=== PATIENT | male | born 1995 | race African-American/Black ===

== ENCOUNTER 2018-04-24 05:33 | Day surgery (SDC) | payer OTHER ==
[2018-04-24] MEDS: IV RINGERS,LACTATED 1000ML 1,000 ML IV (06:27)
[2018-04-24] MEDS ORDERED: LIDOCAINE 2% PF Vial for OR 5 ML VIAL. (06:55)
[2018-04-24] MEDS ORDERED: fentaNYL PF VIAL 100 MCG/2 ML VIAL (06:55)
[2018-04-24] MEDS ORDERED: PROPOFOL 20 ML IV ×2 (06:55→08:04)
[2018-04-24] MEDS ORDERED: ONDANSETRON PF 4 MG/2 ML VIAL. (06:58)
[2018-04-24] MEDS ORDERED: DEXAMETHASONE SOD PHOS 20 MG/5 ML VIAL. (06:58)
[2018-04-24] MEDS ORDERED: ceFAZolin 2GM PREMIX 2 GM/50 ML BAG IV (07:00)
[2018-04-24] MEDS ORDERED: MORPHINE SULFATE 2 MG/ML DISP.SYRIN. IV (07:00)
[2018-04-24] MEDS ORDERED: PROCHLORPERAZINE 10 MG/2 ML VIAL. IV (07:00)
[2018-04-24] MEDS ORDERED: fentaNYL PF VIAL 100 MCG/2 ML VIAL IV ×2 (07:00)
[2018-04-24] MEDS ORDERED: LIDOCAINE 1% PF 2 ML VIAL. ID (07:00)
[2018-04-24] MEDS ORDERED: ONDANSETRON PF 4 MG/2 ML VIAL. IV (07:00)
[2018-04-24] MEDS ORDERED: SEVOFLURANE 31 TO 60 MINUTES. IH (08:01)
[2018-04-24] MEDS ORDERED: PHENYLEPHRINE in 0.9% NACL PF 1 MG/10 ML SYRINGE. IV (08:35)
[2018-04-24] MEDS: BUPIVACAINE-EPI 0.25%-1:200000 50 ML VIAL. (08:41)
[2018-04-24] MEDS ORDERED: KETOROLAC 30 MG/ML INJ FOR OR. INJ (08:41)
[2018-04-24] MEDS: traMADol 50 MG TABLET PO (09:22)
== END 2018-04-24 09:45 | disposition home or self-care (01) ==
LOC: SURG 05:33
DX: M25.861 Other specified joint disorders, right knee (principal); M23.41 Loose body in knee, right knee; Z88.6 Allergy status to analgesic agent; I10 Essential (primary) hypertension; F41.9 Anxiety disorder, unspecified; F32.9 Major depressive disorder, single episode, unspecified; F19.90 Other psychoactive substance use, unspecified, uncomplicated; F17.210 Nicotine dependence, cigarettes, uncomplicated; Z79.899 Other long term (current) drug therapy
CPT/HCPCS: 29877; A7015; C1782; J0690; J1100; J1885; J2001; J2370; J2405; J2704; J3010; J7120

== ENCOUNTER 2018-08-28 00:43 | Inpatient (IN) | payer OTHER ==
[~2018-08-28] VITALS: Ht 190.5 cm; Wt 69.1 kg
[2018-08-28] VITALS (19 sets, daily range): BP systolic 110–175; BP diastolic 52–92
[~2018-08-28 00:43] MED LIST: DIPH25CA58 PO; GABA300C18 PO; TRAM50TA PO
[2018-08-28] MEDS ORDERED: PROPOFOL 10 MG/ML (20ML) VIAL. IV ONE (01:00)
[2018-08-28] MEDS ORDERED: LIDOCAINE 2% PF Vial for OR 5 ML VIAL. ONE (01:48)
[2018-08-28] MEDS ORDERED: PROPOFOL 20 ML IV ONE ×2 (01:48)
[2018-08-28] MEDS ORDERED: SUCCINYLCHOLINE 200 MG/10 ML VIAL. ONE (01:48)
--- NOTE | 2018-08-28 01:58 | PDOC2 ---
CONSULT Date of Consult Date of Consult DATE: 08/28/18 TIME: 01:55 Reason for Consult Reason for Consult: Ingested foreign body-razor blade Current Medications Current Medications Current Medications Propofol 20 ml @ As Directed STK-MED ONCE IV ; Start 08/28/18 at 01:48; Stop 08/28/18 at 01:49; Status DC Lidocaine HCl (Lidocaine Pf 2% Vial) 5 ml STK-MED ONCE .ROUTE ; Start 08/28/18 at 01:48; Stop 08/28/18 at 01:49; Status DC Succinylcholine Chloride (Anectine) 200 mg STK-MED ONCE .ROUTE ; Start at 01:48; Stop 08/28/18 at 01:49; Status DC Propofol 20 ml @ As Directed STK-MED ONCE IV ; Start 08/28/18 at 01:48; Stop 08/28/18 at 01:49; Status DC Active Scripts Active Tramadol Hcl 50 Mg Tablet 50 Mg PO Q4HRS PRN Reported Gabapentin 300 Mg Capsule 300 Mg PO BID Benadryl (Diphenhydramine Hcl) 25 Mg Capsule 1 Cap PO QHS Allergies Allergies: Coded Allergies: aspirin (Verified Allergy, Unknown, 04/24/18) Vitals VITALS Vital Signs Date Time Temp Pulse Resp B/P (MAP) Pulse Ox O2 Delivery O2 Flow Rate FiO2 08/28/18 00:45 98.6 74 16 158/85 (109) 100 Room Air 98.6 Assessment/Plan Assessment/Plan Ingested foreign body- razor blade x 1, Emergency endoscopy for attempted removal with anesthesia for airway management.Risks and benefits discussed with patient including risk of hemorrhage/perforation that would possibly require surgery Full note dictated JOSHUA RAMOS MD Aug 28, 2018 01:58
--- NOTE | 2018-08-28 02:41 | PDOC4 ---
Operative Note Operative Note EGD Meds propofol per anesthesia Pre-op dx ingested foreigh body=razor blade Post-op dx non-visualized razor blade- tarah down stream in sb Plan serial KUBS surgical consult for possible removal if complication occurs JOSHUA RAMOS MD Aug 28, 2018 02:41
[2018-08-28] MEDS: IV NORMAL SALINE 1000ML BAG 1,000 ML IV SCH ×3 (02:45→23:27)
[2018-08-28 02:50] LABS: BASO % 1 % (0-3); EOS % 1 % (0-3); HEMATOCRIT 48.2 % (39.0-53.0); HEMOGLOBIN 16.5 g/dL (13.0-17.5); LYMPH # 2.1 x10^3/uL (1.0-4.8); LYMPH % 27 % (24-48); MEAN CORPUSCULAR HEMOGLOBIN 30 pg (25-35); MEAN CORPUSCULAR HGB CONC 34 g/dL (31-37); MEAN CORPUSCULAR VOLUME 87 fL (79-100); MONO # 0.7 x10^3/uL (0.0-1.1); MONO % 8 % (0-9); NEUT % 63 % (31-73); PLATELET COUNT 61 x10^3/uL (140-400); RED BLOOD COUNT 5.56 x10^6/uL (4.30-5.70); WHITE BLOOD COUNT 7.9 x10^3/uL (4.0-11.0)
[2018-08-28 03:29] LABS: CALCIUM 9.5 mg/dL (8.5-10.1); CREATININE 1.1 mg/dL (0.7-1.3); GFR 99.5; POTASSIUM 3.6 mmol/L (3.5-5.1)
--- NOTE | 2018-08-28 05:14 | OP ---
DATE OF SURGERY: 08/28/2018 SURGEON: Gerardo Yarbrough MD PROCEDURE PERFORMED: Esophagogastroduodenoscopy with attempted foreign body removal. PREOPERATIVE DIAGNOSIS: Ingested razor blade. POSTOPERATIVE DIAGNOSES: Retained food in paper, but not visualized razor blade. DESCRIPTION OF PROCEDURE: After risks and benefits of procedure including risk of hemorrhage, perforation and were discussed with the patient, informed consent was obtained. The patient was then intubated and placed on propofol with anesthesia. Endoscope was advanced through esophagus, stomach, and first and second portions of duodenum. No evidence of retained metal objects were encountered. Within the stomach, the paper which had been utilized by the patient in order to swallow razor blade was noted to be retained. This was suctioned as well as rinsed with water and air, but no retained razor blade was encountered. Scope was inserted, withdrawn, no evidence of active bleeding. The patient tolerated the procedure well. DISPOSITION: Resume previous diet, medications, activity. PLAN: We recommend serial KUBs, IV fluids, to monitor first passage of razor blade as well as surgical consultation for potential complications from the spontaneous passage of the sharp foreign object. GEARRDO YARBROUGH MD DR: MISHA/shanique JOB#: [id number] / [id number] MICHELLE Hubbard DO
[2018-08-28] MEDS ORDERED: PROCHLORPERAZINE 10 MG/2 ML VIAL. IV PRN (07:30)
[2018-08-28] MEDS ORDERED: ACETAMINOPHEN 650 MG SUPP.RECT. PR PRN (07:30)
--- NOTE | 2018-08-28 09:17 | CONS ---
DATE OF CONSULTATION: 08/28/2018 REASON FOR CONSULTATION: Ingested foreign body. HISTORY OF PRESENT ILLNESS: This is a 23-year-old -[place] male whose past medical history is significant for chronic pain, ____ as well as recurrent foreign body ingestions is seen with ingestion of a razor blade documented on x-ray. He has been transferred to [facility] for attempted endoscopic extraction. The patient gives no explanation as for the ingestion and is otherwise an evasive and elusive historian. PAST MEDICAL HISTORY: Depression, recurrent foreign body ingestions, chronic pain. ALLERGIES: ASPIRIN. MEDICATIONS: Gabapentin, Benadryl, and unspecified psychiatric medications. SOCIAL HISTORY: He is incarcerated. Does not drink or smoke at this time. FAMILY HISTORY: Noncontributory. REVIEW OF SYSTEMS: As above. PHYSICAL EXAMINATION: GENERAL: A well-nourished, well-developed -[place] male who is alert, cooperative, in no acute distress. VITAL SIGNS: Pulse is 70, respirations 20. HEENT: Normocephalic, atraumatic. Pupils and extraocular muscles are not tested. Sclerae are anicteric. NECK: Supple. LUNGS: Clear. CARDIOVASCULAR: Reveals an S1, S2 without S3, S4 or appreciable murmur. ABDOMEN: Soft abdomen, normal bowel sounds without appreciable hepatosplenomegaly. EXTREMITIES: Reveals no cyanosis, clubbing, edema. IMPRESSION AND PLAN: Retained esophageal foreign body, most likely a razor blade. We recommend endoscopic extraction if the razor blade has not already passed through the stomach. Anesthesia, protection of airway will be coordinated prior to the endoscopy as discussed with the patient and the [facility]. JOSHUA RAMOS MD DR: MISHA/shanique JOB#: [id number] / [id number] MICHELLE Hubbard DO
--- NOTE | 2018-08-28 10:07 | RAD ---
OLGA, 08/28/2018: HISTORY: Retained foreign body, swallowed razor leg The abdominal gas pattern is unremarkable. There is no evidence organomegaly. There is a radiopaque foreign body compatible with a razor blade projected over the left upper quadrant of the abdomen in the region of the body of the stomach. No other foreign body is seen. No other abnormality is detected. IMPRESSION: Radiopaque foreign body projected over the body of the stomach. Electronically signed by: Dimitri Watson MD (08/28/2018 10:04 AM) [facility]
--- NOTE | 2018-08-28 10:59 | PDOC ---
Subjective: Subjective: Denies pain, wants to eat. Objective: Vital Signs: Vital Signs Date Time Temp Pulse Resp B/P (MAP) Pulse Ox O2 Delivery O2 Flow Rate FiO2 08/28/18 10:00 75 117/52 (73) 98 Room Air 08/28/18 09:00 17 08/28/18 07:00 98.3 98.3 08/28/18 02:47 10 Imaging: EGD 08/28/18 non-visualized razor blade- likely down stream in sb KUB 08/28/18 IMPRESSION: Radiopaque foreign body projected over the body of the stomach. PE: GEN: NAD LUNGS: CTAB HEART: RRR ABD: non-tender NEURO/PSYCH: A & O 3 A/P: Razor blade ingestion -- Reviewed w/ Dr. Yarbrough - ice chips only, okay to transfer out of ICU, will ask surgery to follow. D/w RN and Dr. Brantley/students. MICHAEL TRERELL Aug 28, 2018 10:59
--- NOTE | 2018-08-28 11:45 | HP ---
ADMIT DATE: 08/28/2018 CHIEF COMPLAINT: Ingestion of razor blade. HISTORY OF PRESENT ILLNESS: The patient is a pleasant middle-aged 23-year-old -[place] male who resides at [facility]. Basically, I believe, he is being held there at the longterm until he gets adjudicator for his legal issues. He apparently got hold of a razor blade, swallowed it, states he has been depressed, has some associated abdominal pain. I discussed the case with ER physician. We are admitting the patient. The patient went for an EGD this morning, but apparently they did not find the razor, although it is showing up on the x-rays. We suspect it is now in the small intestine. He is now in the ICU. PAST MEDICAL HISTORY: Depression. ALLERGIES: ASPIRIN. FAMILY HISTORY: Hypertension. SOCIAL HISTORY: He denies drinking, smoke or taking drugs. He resides at the longterm. MEDICATIONS: Reviewed. He is on Benadryl, Ultram and gabapentin. REVIEW OF SYSTEMS: GENERAL: No history of weight change, weakness or fevers. SKIN: No bruising, hair changes or rashes. EYES: No blurred, double or loss of vision. NOSE AND THROAT: No history of nosebleeds, hoarseness or sore throat. HEART: No history of palpitations, chest pain or shortness of breath on exertion. LUNGS: Denies cough, hemoptysis, wheezing or shortness of breath. GASTROINTESTINAL: He complains of abdominal pain, although it is improving. GENITOURINARY: No history of frequency, urgency, hesitancy or nocturia. NEUROLOGIC: Denies history of numbness, tingling, tremor or weakness. PSYCHIATRIC: No history of panic, anxiety or depression. ENDOCRINE: No history of heat or cold intolerance, polyuria or polydipsia. EXTREMITIES: Denies muscle weakness, joint pain, pain on walking or stiffness. PHYSICAL EXAMINATION: VITAL SIGNS: Temperature afebrile, pulse 70, respirations 18, blood pressure 144/74. GENERAL: He is alert, cooperative. HEART: Normal S1, S2. LUNGS: Clear to auscultation. ABDOMEN: Soft, positive bowel sounds, nontender. EXTREMITIES: No edema. SKIN: No rash. ENDOCRINE: No thyromegaly. LYMPHATICS: No cervical nodes. HEMATOPOIETIC: No bruising. NEUROLOGICAL: He is moving all extremities. PSYCHIATRIC: He is a little depressed. GENITOURINARY: Normal. LABORATORY DATA: Hematology is normal. Electrolytes are normal. ASSESSMENT AND PLAN: Ingestion of razor blade. Given the size of the blade, I suspect it will pass through the intestines and he will eventually defecate it out. For now, we are going to do a careful monitoring. We have consulted Surgery, have him on standby in case he develops severe pain and leukocytosis or fever. We have consulted GI as well. They did endoscopy, did not find anything yet. We will try to advance his diet. Continue home meds, frequent labs. PROGNOSIS: Guarded. MICHELLE CHILDRESS DO DR: KYLEIGH/shanique JOB#: [id number] / [id number]
--- NOTE | 2018-08-28 11:53 | PDOC2 ---
RICKI POSADAS RESIDENTIAL REAL ESTATE AGENT 08/28/18 1153: CONSULT Date of Consult Date of Consult DATE: 08/28/18 TIME: 11:46 Reason for Consult Reason for Consult: FB ingestion Referring Physician Referring Physician: Dr Yarbrough Identification/Chief Complaint Chief Complaint FB ingestion Source Source: Chart review, Patient History of Present Illness Reason for Visit: Razor blade ingestion orally EGD-unable to visualize razor Xray today reveals near stomach denies pain, nausea or emesis + flatus, no stool from records not first time for FB ingestion Past Medical History Past Medical History chronic pain, depression, anxiety, HTN, numbness Past Surgical History Past Surgical History: No pertinent history Family History Family History: Other (noncontributory to current illness ) Social History Social History incarcerated No ALCOHOL: none Drugs: None Current Problem List Problem List Problems Medical Problems: (1) Foreign body Status: Acute Current Medications Current Medications Current Medications Propofol 20 ml @ As Directed STK-MED ONCE IV ; Start 08/28/18 at 01:48; Stop 08/28/18 at 01:49; Status DC Lidocaine HCl (Lidocaine Pf 2% Vial) 5 ml STK-MED ONCE .ROUTE ; Start 08/28/18 at 01:48; Stop 08/28/18 at 01:49; Status DC Succinylcholine Chloride (Anectine) 200 mg STK-MED ONCE .ROUTE ; Start at 01:48; Stop 08/28/18 at 01:49; Status DC Propofol 20 ml @ As Directed STK-MED ONCE IV ; Start 08/28/18 at 01:48; Stop 08/28/18 at 01:49; Status DC Sodium Chloride 1,000 ml @ 100 mls/hr Q10H IV Last administered on 08/28/18at 02:45; Start 08/28/18 at 02:45 Acetaminophen (Tylenol Supp) 650 mg PRN Q6HRS PRN [place] MILD PAIN / TEMP; Start 08/28/18 at 07:30 Prochlorperazine Edisylate (Compazine) 10 mg PRN Q6HRS PRN IV HEADACHE/NAUSEA/ VOMITING Last administered on 08/28/18at 07:41; Start 08/28/18 at 07:30 Active Scripts Active Tramadol Hcl 50 Mg Tablet 50 Mg PO Q4HRS PRN Reported Gabapentin 300 Mg Capsule 300 Mg PO BID Benadryl (Diphenhydramine Hcl) 25 Mg Capsule 1 Cap PO QHS Allergies Allergies: Coded Allergies: aspirin (Verified Allergy, Unknown, 04/24/18) ROS General: No: Chills, Other (fevers ) PSYCHOLOGICAL ROS: No: Anxiety Eyes: No Blurry vision, No Double vision HEENT: No: Heacaches, Oral lesions Hematological and Lymphatic: No: Bleeding Problems, Blood Clots Respiratory: No: Cough, Shortness of breath Cardiovascular: No Chest Pain, No Palpitations Gastrointestinal: Yes Other (see hpi) Genitourinary: No Dysuria, No Hematuria Musculoskeletal: No Gait Disturbance, No Joint Pain Neurological: Yes Numbness/Tingling; No Behavorial Changes Skin: No Mole Changes, No Pruritus Physical Exam General: Alert, Oriented X3, Cooperative, No acute distress HEENT: PERRLA, Mucous membr. moist/pink Lungs: Clear to auscultation, Normal air movement Heart: Regular rate, Normal S1, Normal S2, No murmurs Abdomen: Soft, No tenderness, Other (ND) Extremities: No clubbing, No cyanosis Skin: No rashes, No breakdown Neuro: Normal gait, Normal speech Psych/Mental Status: Mental status NL, Mood NL MUSCULOSKELETAL: No deformity, No swelling Vitals VITALS Vital Signs Date Time Temp Pulse Resp B/P (MAP) Pulse Ox O2 Delivery O2 Flow Rate FiO2 08/28/18 11:00 98.3 65 20 126/71 (89) 98 Room Air 98.3 08/28/18 02:47 10 Labs Labs Laboratory Tests Test 08/28/18 01:10 White Blood Count 7.9 x10^3/uL (4.0-11.0) Red Blood Count 5.56 x10^6/uL (4.30-5.70) Hemoglobin 16.5 g/dL (13.0-17.5) Hematocrit 48.2 % (39.0-53.0) Mean Corpuscular Volume 87 fL (79-100) Mean Corpuscular Hemoglobin 30 pg (25-35) Mean Corpuscular Hemoglobin Concent 34 g/dL (31-37) Red Cell Distribution Width 14.0 % (11.5-14.5) Platelet Count 61 x10^3/uL (140-400) Neutrophils (%) (Auto) 63 % (31-73) Lymphocytes (%) (Auto) 27 % (24-48) Monocytes (%) (Auto) 8 % (0-9) Eosinophils (%) (Auto) 1 % (0-3) Basophils (%) (Auto) 1 % (0-3) Neutrophils # (Auto) 5.0 x10^3uL (1.8-7.7) Lymphocytes # (Auto) 2.1 x10^3/uL (1.0-4.8) Monocytes # (Auto) 0.7 x10^3/uL (0.0-1.1) Eosinophils # (Auto) 0.0 x10^3/uL (0.0-0.7) Basophils # (Auto) 0.0 x10^3/uL (0.0-0.2) Sodium Level 140 mmol/L (136-145) Potassium Level 3.6 mmol/L (3.5-5.1) Chloride Level 100 mmol/L (98-107) Carbon Dioxide Level 28 mmol/L (21-32) Anion Gap 12 (6-14) Blood Urea Nitrogen 15 mg/dL (8-26) Creatinine 1.1 mg/dL (0.7-1.3) Estimated GFR (Cockcroft-Gault) 99.5 Glucose Level 83 mg/dL (70-99) Calcium Level 9.5 mg/dL (8.5-10.1) Laboratory Tests Test 08/28/18 01:10 White Blood Count 7.9 x10^3/uL (4.0-11.0) Red Blood Count 5.56 x10^6/uL (4.30-5.70) Hemoglobin 16.5 g/dL (13.0-17.5) Hematocrit 48.2 % (39.0-53.0) Mean Corpuscular Volume 87 fL (79-100) Mean Corpuscular Hemoglobin 30 pg (25-35) Mean Corpuscular Hemoglobin Concent 34 g/dL (31-37) Red Cell Distribution Width 14.0 % (11.5-14.5) Platelet Count 61 x10^3/uL (140-400) Neutrophils (%) (Auto) 63 % (31-73) Lymphocytes (%) (Auto) 27 % (24-48) Monocytes (%) (Auto) 8 % (0-9) Eosinophils (%) (Auto) 1 % (0-3) Basophils (%) (Auto) 1 % (0-3) Neutrophils # (Auto) 5.0 x10^3uL (1.8-7.7) Lymphocytes # (Auto) 2.1 x10^3/uL (1.0-4.8) Monocytes # (Auto) 0.7 x10^3/uL (0.0-1.1) Eosinophils # (Auto) 0.0 x10^3/uL (0.0-0.7) Basophils # (Auto) 0.0 x10^3/uL (0.0-0.2) Sodium Level 140 mmol/L (136-145) Potassium Level 3.6 mmol/L (3.5-5.1) Chloride Level 100 mmol/L (98-107) Carbon Dioxide Level 28 mmol/L (21-32) Anion Gap 12 (6-14) Blood Urea Nitrogen 15 mg/dL (8-26) Creatinine 1.1 mg/dL (0.7-1.3) Estimated GFR (Cockcroft-Gault) 99.5 Glucose Level 83 mg/dL (70-99) Calcium Level 9.5 mg/dL (8.5-10.1) Assessment/Plan Assessment/Plan FB ingestion stable xray in AM ALFONSO TELLEZ MD 08/28/18 3182: CONSULT Assessment/Plan Assessment/Plan Pt seen and examined. Agree with Ms. Posadas's note Pt denies c/o, hungry abd soft, ND, NTTP cont observation and XR in AM Thanks for consult! RICKI POSADAS APRN Aug 28, 2018 11:53 ALFONSO TELLEZ MD Aug 28, 2018 21:48
[2018-08-28] MEDS ORDERED: CITA20TA9 PO (15:50)
[2018-08-29 03:26] VITALS: BP 113/77
[2018-08-29 05:38] LABS: BASO # 0.1 x10^3/uL (0.0-0.2); BASO % 1 % (0-3); EOS # 0.1 x10^3/uL (0.0-0.7); EOS % 3 % (0-3); HEMATOCRIT 42.2 % (39.0-53.0); HEMOGLOBIN 14.2 g/dL (13.0-17.5); LYMPH # 2.3 x10^3/uL (1.0-4.8); LYMPH % 46 % (24-48); MEAN CORPUSCULAR HEMOGLOBIN 29 pg (25-35); MEAN CORPUSCULAR HGB CONC 34 g/dL (31-37); MEAN CORPUSCULAR VOLUME 87 fL (79-100); MONO # 0.6 x10^3/uL (0.0-1.1); MONO % 12 % (0-9); NEUT # 1.9 x10^3uL (1.8-7.7); NEUT % 38 % (31-73); RED BLOOD COUNT 4.85 x10^6/uL (4.30-5.70); WHITE BLOOD COUNT 5.1 x10^3/uL (4.0-11.0)
[2018-08-29 06:05] LABS: ALBUMIN 3.7 g/dL (3.4-5.0); ALBUMIN/GLOBULIN RATIO 1.1 (1.0-1.7); CALCIUM 8.8 mg/dL (8.5-10.1); CREATININE 1.1 mg/dL (0.7-1.3); GFR 99.5; TOTAL BILIRUBIN 0.9 mg/dL (0.2-1.0)
[2018-08-29 07:00] VITALS: BP 119/78
[2018-08-29 07:55] LABS: PLATELET COUNT 54 x10^3/uL (140-400)
--- NOTE | 2018-08-29 08:16 | RAD ---
Examination: Frontal view of the abdomen HISTORY: History of injection of the razor blade COMPARISON: 08/28/2018 Findings/ impression: The bowel gas pattern appears unremarkable.The ingested foreign body/razor blade now appears to be in the left lower pelvis region could be in the sigmoid colon. Electronically signed by: Aurelio Valentine MD (08/29/2018 8:12 AM) [facility]
[2018-08-29] MEDS: IV NORMAL SALINE 1000ML BAG 1,000 ML IV SCH ×2 (09:12→18:20)
--- NOTE | 2018-08-29 10:00 | PDOC ---
PROGRESS NOTES History of Present Illness History of Present Illness ASSESSMENT AND PLAN: Ingestion of razor blade. The ingested foreign body/razor blade now appears to be in the left lower pelvis region could be in the sigmoid colon. careful monitoring. consulted Surgery, have him on standby , IF develops severe pain and leukocytosis or fever. GI following Continue home meds, frequent labs. Minimal po intake recommended with carter ESPINOZA PROGNOSIS: Guarded. i suggested to the officers in his room, that they go in the restroom, and make sure he does not try to retrieve the razor from his stool Operative Note EGD Meds propofol per anesthesia Pre-op dx ingested foreigh body=razor blade Post-op dx non-visualized razor blade- [place] down stream in sb Plan serial KUBS surgical consult for possible removal if complication occurs Vitals Vitals Vital Signs Date Time Temp Pulse Resp B/P (MAP) Pulse Ox O2 Delivery O2 Flow Rate FiO2 08/29/18 08:30 Room Air 08/29/18 07:00 98.7 65 18 119/78 (92) 100 98.7 Physical Exam General: Alert, Oriented X3, Cooperative, No acute distress Heart: Regular rate, Normal S1, Normal S2, No murmurs Lungs: Clear Abdomen: Normal bowel sounds, Soft, No tenderness, Other (ND) Extremities: No clubbing, No cyanosis Skin: No rashes, No breakdown Labs LABS PROCEDURE: KUB Examination: Frontal view of the abdomen HISTORY: History of injection of the razor blade COMPARISON: 08/28/2018 Findings/ impression: The bowel gas pattern appears unremarkable.The ingested foreign body/razor blade now appears to be in the left lower pelvis region could be in the sigmoid colon. Electronically signed by: Aurelio Valentine MD (08/29/2018 8:12 AM) [facility] Laboratory Tests Test 08/29/18 04:50 White Blood Count 5.1 x10^3/uL (4.0-11.0) Red Blood Count 4.85 x10^6/uL (4.30-5.70) Hemoglobin 14.2 g/dL (13.0-17.5) Hematocrit 42.2 % (39.0-53.0) Mean Corpuscular Volume 87 fL (79-100) Mean Corpuscular Hemoglobin 29 pg (25-35) Mean Corpuscular Hemoglobin Concent 34 g/dL (31-37) Red Cell Distribution Width 14.0 % (11.5-14.5) Platelet Count 54 x10^3/uL (140-400) Neutrophils (%) (Auto) 38 % (31-73) Lymphocytes (%) (Auto) 46 % (24-48) Monocytes (%) (Auto) 12 % (0-9) Eosinophils (%) (Auto) 3 % (0-3) Basophils (%) (Auto) 1 % (0-3) Neutrophils # (Auto) 1.9 x10^3uL (1.8-7.7) Lymphocytes # (Auto) 2.3 x10^3/uL (1.0-4.8) Monocytes # (Auto) 0.6 x10^3/uL (0.0-1.1) Eosinophils # (Auto) 0.1 x10^3/uL (0.0-0.7) Basophils # (Auto) 0.1 x10^3/uL (0.0-0.2) Sodium Level 140 mmol/L (136-145) Potassium Level 4.0 mmol/L (3.5-5.1) Chloride Level 105 mmol/L (98-107) Carbon Dioxide Level 27 mmol/L (21-32) Anion Gap 8 (6-14) Blood Urea Nitrogen 8 mg/dL (8-26) Creatinine 1.1 mg/dL (0.7-1.3) Estimated GFR (Cockcroft-Gault) 99.5 BUN/Creatinine Ratio 7 (6-20) Glucose Level 92 mg/dL (70-99) Calcium Level 8.8 mg/dL (8.5-10.1) Total Bilirubin 0.9 mg/dL (0.2-1.0) Aspartate Amino Transf (AST/SGOT) 22 U/L (15-37) Alanine Aminotransferase (ALT/SGPT) 37 U/L (16-63) Alkaline Phosphatase 65 U/L (46-116) Total Protein 7.0 g/dL (6.4-8.2) Albumin 3.7 g/dL (3.4-5.0) Albumin/Globulin Ratio 1.1 (1.0-1.7) Assessment and Plan Assessmemt and Plan Problems Medical Problems: (1) Foreign body Status: Acute Comment Review of Relevant I have reviewed the following items elier (where applicable) has been applied. Labs Laboratory Tests Test 08/28/18 01:10 08/28/18 02:37 08/29/18 04:50 White Blood Count 7.9 x10^3/uL (4.0-11.0) 5.1 x10^3/uL (4.0-11.0) Red Blood Count 5.56 x10^6/uL (4.30-5.70) 4.85 x10^6/uL (4.30-5.70) Hemoglobin 16.5 g/dL (13.0-17.5) 14.2 g/dL (13.0-17.5) Hematocrit 48.2 % (39.0-53.0) 42.2 % (39.0-53.0) Mean Corpuscular Volume 87 fL (79-100) 87 fL (79-100) Mean Corpuscular Hemoglobin 30 pg (25-35) 29 pg (25-35) Mean Corpuscular Hemoglobin Concent 34 g/dL (31-37) 34 g/dL (31-37) Red Cell Distribution Width 14.0 % (11.5-14.5) 14.0 % (11.5-14.5) Platelet Count 61 x10^3/uL (140-400) 54 x10^3/uL (140-400) Neutrophils (%) (Auto) 63 % (31-73) 38 % (31-73) Lymphocytes (%) (Auto) 27 % (24-48) 46 % (24-48) Monocytes (%) (Auto) 8 % (0-9) 12 % (0-9) Eosinophils (%) (Auto) 1 % (0-3) 3 % (0-3) Basophils (%) (Auto) 1 % (0-3) 1 % (0-3) Neutrophils # (Auto) 5.0 x10^3uL (1.8-7.7) 1.9 x10^3uL (1.8-7.7) Lymphocytes # (Auto) 2.1 x10^3/uL (1.0-4.8) 2.3 x10^3/uL (1.0-4.8) Monocytes # (Auto) 0.7 x10^3/uL (0.0-1.1) 0.6 x10^3/uL (0.0-1.1) Eosinophils # (Auto) 0.0 x10^3/uL (0.0-0.7) 0.1 x10^3/uL (0.0-0.7) Basophils # (Auto) 0.0 x10^3/uL (0.0-0.2) 0.1 x10^3/uL (0.0-0.2) Sodium Level 140 mmol/L (136-145) 140 mmol/L (136-145) Potassium Level 3.6 mmol/L (3.5-5.1) 4.0 mmol/L (3.5-5.1) Chloride Level 100 mmol/L (98-107) 105 mmol/L (98-107) Carbon Dioxide Level 28 mmol/L (21-32) 27 mmol/L (21-32) Anion Gap 12 (6-14) 8 (6-14) Blood Urea Nitrogen 15 mg/dL (8-26) 8 mg/dL (8-26) Creatinine 1.1 mg/dL (0.7-1.3) 1.1 mg/dL (0.7-1.3) Estimated GFR (Cockcroft-Gault) 99.5 99.5 Glucose Level 83 mg/dL (70-99) 92 mg/dL (70-99) Calcium Level 9.5 mg/dL (8.5-10.1) 8.8 mg/dL (8.5-10.1) Nasal Screen MRSA (PCR) Negative (Negative) BUN/Creatinine Ratio 7 (6-20) Total Bilirubin 0.9 mg/dL (0.2-1.0) Aspartate Amino Transf (AST/SGOT) 22 U/L (15-37) Alanine Aminotransferase (ALT/SGPT) 37 U/L (16-63) Alkaline Phosphatase 65 U/L (46-116) Total Protein 7.0 g/dL (6.4-8.2) Albumin 3.7 g/dL (3.4-5.0) Albumin/Globulin Ratio 1.1 (1.0-1.7) Laboratory Tests Test 08/29/18 04:50 White Blood Count 5.1 x10^3/uL (4.0-11.0) Red Blood Count 4.85 x10^6/uL (4.30-5.70) Hemoglobin 14.2 g/dL (13.0-17.5) Hematocrit 42.2 % (39.0-53.0) Mean Corpuscular Volume 87 fL (79-100) Mean Corpuscular Hemoglobin 29 pg (25-35) Mean Corpuscular Hemoglobin Concent 34 g/dL (31-37) Red Cell Distribution Width 14.0 % (11.5-14.5) Platelet Count 54 x10^3/uL (140-400) Neutrophils (%) (Auto) 38 % (31-73) Lymphocytes (%) (Auto) 46 % (24-48) Monocytes (%) (Auto) 12 % (0-9) Eosinophils (%) (Auto) 3 % (0-3) Basophils (%) (Auto) 1 % (0-3) Neutrophils # (Auto) 1.9 x10^3uL (1.8-7.7) Lymphocytes # (Auto) 2.3 x10^3/uL (1.0-4.8) Monocytes # (Auto) 0.6 x10^3/uL (0.0-1.1) Eosinophils # (Auto) 0.1 x10^3/uL (0.0-0.7) Basophils # (Auto) 0.1 x10^3/uL (0.0-0.2) Sodium Level 140 mmol/L (136-145) Potassium Level 4.0 mmol/L (3.5-5.1) Chloride Level 105 mmol/L (98-107) Carbon Dioxide Level 27 mmol/L (21-32) Anion Gap 8 (6-14) Blood Urea Nitrogen 8 mg/dL (8-26) Creatinine 1.1 mg/dL (0.7-1.3) Estimated GFR (Cockcroft-Gault) 99.5 BUN/Creatinine Ratio 7 (6-20) Glucose Level 92 mg/dL (70-99) Calcium Level 8.8 mg/dL (8.5-10.1) Total Bilirubin 0.9 mg/dL (0.2-1.0) Aspartate Amino Transf (AST/SGOT) 22 U/L (15-37) Alanine Aminotransferase (ALT/SGPT) 37 U/L (16-63) Alkaline Phosphatase 65 U/L (46-116) Total Protein 7.0 g/dL (6.4-8.2) Albumin 3.7 g/dL (3.4-5.0) Albumin/Globulin Ratio 1.1 (1.0-1.7) Medications Current Medications Propofol 20 ml @ As Directed STK-MED ONCE IV ; Start 08/28/18 at 01:48; Stop 08/28/18 at 01:49; Status DC Lidocaine HCl (Lidocaine Pf 2% Vial) 5 ml STK-MED ONCE .ROUTE ; Start 08/28/18 at 01:48; Stop 08/28/18 at 01:49; Status DC Succinylcholine Chloride (Anectine) 200 mg STK-MED ONCE .ROUTE ; Start at 01:48; Stop 08/28/18 at 01:49; Status DC Propofol 20 ml @ As Directed STK-MED ONCE IV ; Start 08/28/18 at 01:48; Stop 08/28/18 at 01:49; Status DC Sodium Chloride 1,000 ml @ 100 mls/hr Q10H IV Last administered on 08/29/18at 09:12; Start 08/28/18 at 02:45 Acetaminophen (Tylenol Supp) 650 mg PRN Q6HRS PRN [place] MILD PAIN / TEMP; Start 08/28/18 at 07:30 Prochlorperazine Edisylate (Compazine) 10 mg PRN Q6HRS PRN IV HEADACHE/NAUSEA/ VOMITING Last administered on 08/28/18at 07:41; Start 08/28/18 at 07:30 Propofol (Diprivan) 200 mg STK-MED ONCE IV ; Start 08/28/18 at 01:00; Stop at 12:52; Status DC Active Scripts Active Tramadol Hcl 50 Mg Tablet 50 Mg PO Q4HRS PRN Reported Celexa (Citalopram Hydrobromide) 20 Mg Tablet 1 Tab PO DAILY Gabapentin 300 Mg Capsule 300 Mg PO BID Benadryl (Diphenhydramine Hcl) 25 Mg Capsule 1 Cap PO QHS Vitals/I & O Vital Sign - Last 24 Hours 08/28/18 08/28/18 08/28/18 08/28/18 10:00 11:00 12:00 12:00 Temp 98.3 98.3 Pulse 75 65 56 Resp 20 B/P (MAP) 117/52 (73) 126/71 (89) 112/61 (78) Pulse Ox 98 98 98 O2 Delivery Room Air Room Air Room Air Room Air 08/28/18 08/28/18 08/28/18 08/28/18 13:00 14:00 15:00 19:20 Temp 97.7 98.3 97.7 98.3 Pulse 64 57 75 68 Resp 24 16 16 B/P (MAP) 123/66 (85) 133/73 (93) 122/77 (92) 113/64 (80) Pulse Ox 98 98 99 99 O2 Delivery Room Air Room Air Room Air Room Air 08/28/18 08/28/18 08/29/18 08/29/18 20:00 23:29 03:26 07:00 Temp 98.2 97.7 98.7 98.2 97.7 98.7 Pulse 71 73 65 Resp 18 18 18 B/P (MAP) 116/72 (87) 113/77 (89) 119/78 (92) Pulse Ox 99 99 100 O2 Delivery Room Air Room Air Room Air Room Air 08/29/18 08:30 O2 Delivery Room Air Intake and Output 08/28/18 08/28/18 08/29/18 15:01 23:01 07:01 Intake Total 0 ml 420 ml Output Total 400 ml 100 ml 400 ml Balance -400 ml -100 ml 20 ml KIRTI VELASQUEZ MD Aug 29, 2018 10:00
--- NOTE | 2018-08-29 10:40 | PDOC ---
SURGICAL PROGRESS NOTE Subjective Pt without c/o, no n/V, no abd pain, stool yesterday Vital Signs Vital Signs Date Time Temp Pulse Resp B/P (MAP) Pulse Ox O2 Delivery O2 Flow Rate FiO2 08/29/18 08:30 Room Air 08/29/18 07:00 98.7 65 18 119/78 (92) 100 98.7 I&O Intake and Output 08/29/18 07:00 Intake Total 420 ml Output Total 900 ml Balance -480 ml Intake Oral 420 ml Output Urine Total 900 ml # Voids 1 General: Alert, Oriented X3, Cooperative, No acute distress Abdomen: Soft, No tenderness Labs Laboratory Tests Test 08/28/18 01:10 08/28/18 02:37 08/29/18 04:50 White Blood Count 7.9 x10^3/uL (4.0-11.0) 5.1 x10^3/uL (4.0-11.0) Red Blood Count 5.56 x10^6/uL (4.30-5.70) 4.85 x10^6/uL (4.30-5.70) Hemoglobin 16.5 g/dL (13.0-17.5) 14.2 g/dL (13.0-17.5) Hematocrit 48.2 % (39.0-53.0) 42.2 % (39.0-53.0) Mean Corpuscular Volume 87 fL (79-100) 87 fL (79-100) Mean Corpuscular Hemoglobin 30 pg (25-35) 29 pg (25-35) Mean Corpuscular Hemoglobin Concent 34 g/dL (31-37) 34 g/dL (31-37) Red Cell Distribution Width 14.0 % (11.5-14.5) 14.0 % (11.5-14.5) Platelet Count 61 x10^3/uL (140-400) 54 x10^3/uL (140-400) Neutrophils (%) (Auto) 63 % (31-73) 38 % (31-73) Lymphocytes (%) (Auto) 27 % (24-48) 46 % (24-48) Monocytes (%) (Auto) 8 % (0-9) 12 % (0-9) Eosinophils (%) (Auto) 1 % (0-3) 3 % (0-3) Basophils (%) (Auto) 1 % (0-3) 1 % (0-3) Neutrophils # (Auto) 5.0 x10^3uL (1.8-7.7) 1.9 x10^3uL (1.8-7.7) Lymphocytes # (Auto) 2.1 x10^3/uL (1.0-4.8) 2.3 x10^3/uL (1.0-4.8) Monocytes # (Auto) 0.7 x10^3/uL (0.0-1.1) 0.6 x10^3/uL (0.0-1.1) Eosinophils # (Auto) 0.0 x10^3/uL (0.0-0.7) 0.1 x10^3/uL (0.0-0.7) Basophils # (Auto) 0.0 x10^3/uL (0.0-0.2) 0.1 x10^3/uL (0.0-0.2) Sodium Level 140 mmol/L (136-145) 140 mmol/L (136-145) Potassium Level 3.6 mmol/L (3.5-5.1) 4.0 mmol/L (3.5-5.1) Chloride Level 100 mmol/L (98-107) 105 mmol/L (98-107) Carbon Dioxide Level 28 mmol/L (21-32) 27 mmol/L (21-32) Anion Gap 12 (6-14) 8 (6-14) Blood Urea Nitrogen 15 mg/dL (8-26) 8 mg/dL (8-26) Creatinine 1.1 mg/dL (0.7-1.3) 1.1 mg/dL (0.7-1.3) Estimated GFR (Cockcroft-Gault) 99.5 99.5 Glucose Level 83 mg/dL (70-99) 92 mg/dL (70-99) Calcium Level 9.5 mg/dL (8.5-10.1) 8.8 mg/dL (8.5-10.1) Nasal Screen MRSA (PCR) Negative (Negative) BUN/Creatinine Ratio 7 (6-20) Total Bilirubin 0.9 mg/dL (0.2-1.0) Aspartate Amino Transf (AST/SGOT) 22 U/L (15-37) Alanine Aminotransferase (ALT/SGPT) 37 U/L (16-63) Alkaline Phosphatase 65 U/L (46-116) Total Protein 7.0 g/dL (6.4-8.2) Albumin 3.7 g/dL (3.4-5.0) Albumin/Globulin Ratio 1.1 (1.0-1.7) Laboratory Tests Test 08/29/18 04:50 White Blood Count 5.1 x10^3/uL (4.0-11.0) Red Blood Count 4.85 x10^6/uL (4.30-5.70) Hemoglobin 14.2 g/dL (13.0-17.5) Hematocrit 42.2 % (39.0-53.0) Mean Corpuscular Volume 87 fL (79-100) Mean Corpuscular Hemoglobin 29 pg (25-35) Mean Corpuscular Hemoglobin Concent 34 g/dL (31-37) Red Cell Distribution Width 14.0 % (11.5-14.5) Platelet Count 54 x10^3/uL (140-400) Neutrophils (%) (Auto) 38 % (31-73) Lymphocytes (%) (Auto) 46 % (24-48) Monocytes (%) (Auto) 12 % (0-9) Eosinophils (%) (Auto) 3 % (0-3) Basophils (%) (Auto) 1 % (0-3) Neutrophils # (Auto) 1.9 x10^3uL (1.8-7.7) Lymphocytes # (Auto) 2.3 x10^3/uL (1.0-4.8) Monocytes # (Auto) 0.6 x10^3/uL (0.0-1.1) Eosinophils # (Auto) 0.1 x10^3/uL (0.0-0.7) Basophils # (Auto) 0.1 x10^3/uL (0.0-0.2) Sodium Level 140 mmol/L (136-145) Potassium Level 4.0 mmol/L (3.5-5.1) Chloride Level 105 mmol/L (98-107) Carbon Dioxide Level 27 mmol/L (21-32) Anion Gap 8 (6-14) Blood Urea Nitrogen 8 mg/dL (8-26) Creatinine 1.1 mg/dL (0.7-1.3) Estimated GFR (Cockcroft-Gault) 99.5 BUN/Creatinine Ratio 7 (6-20) Glucose Level 92 mg/dL (70-99) Calcium Level 8.8 mg/dL (8.5-10.1) Total Bilirubin 0.9 mg/dL (0.2-1.0) Aspartate Amino Transf (AST/SGOT) 22 U/L (15-37) Alanine Aminotransferase (ALT/SGPT) 37 U/L (16-63) Alkaline Phosphatase 65 U/L (46-116) Total Protein 7.0 g/dL (6.4-8.2) Albumin 3.7 g/dL (3.4-5.0) Albumin/Globulin Ratio 1.1 (1.0-1.7) I have reviewed the following KUB with FB suspected in sigmoid Problem List Problems Medical Problems: (1) Foreign body Status: Acute Assessment/Plan cont clears and observation KUB in AM ALFONSO TELLEZ MD Aug 29, 2018 10:40
[2018-08-29 11:00] VITALS: BP 123/82
--- NOTE | 2018-08-29 12:33 | PDOC ---
G I PROGRESS NOTE Reason for Follow-up Ingested razor foreign body Subjective Patient hungry Physical Exam Lungs clear CV S1 S2 ABD +BS, soft, nontender Review of Relevant I have reviewed the following items elier (where applicable) has been applied. Labs Laboratory Tests Test 08/28/18 01:10 08/28/18 02:37 08/29/18 04:50 White Blood Count 7.9 x10^3/uL (4.0-11.0) 5.1 x10^3/uL (4.0-11.0) Red Blood Count 5.56 x10^6/uL (4.30-5.70) 4.85 x10^6/uL (4.30-5.70) Hemoglobin 16.5 g/dL (13.0-17.5) 14.2 g/dL (13.0-17.5) Hematocrit 48.2 % (39.0-53.0) 42.2 % (39.0-53.0) Mean Corpuscular Volume 87 fL (79-100) 87 fL (79-100) Mean Corpuscular Hemoglobin 30 pg (25-35) 29 pg (25-35) Mean Corpuscular Hemoglobin Concent 34 g/dL (31-37) 34 g/dL (31-37) Red Cell Distribution Width 14.0 % (11.5-14.5) 14.0 % (11.5-14.5) Platelet Count 61 x10^3/uL (140-400) 54 x10^3/uL (140-400) Neutrophils (%) (Auto) 63 % (31-73) 38 % (31-73) Lymphocytes (%) (Auto) 27 % (24-48) 46 % (24-48) Monocytes (%) (Auto) 8 % (0-9) 12 % (0-9) Eosinophils (%) (Auto) 1 % (0-3) 3 % (0-3) Basophils (%) (Auto) 1 % (0-3) 1 % (0-3) Neutrophils # (Auto) 5.0 x10^3uL (1.8-7.7) 1.9 x10^3uL (1.8-7.7) Lymphocytes # (Auto) 2.1 x10^3/uL (1.0-4.8) 2.3 x10^3/uL (1.0-4.8) Monocytes # (Auto) 0.7 x10^3/uL (0.0-1.1) 0.6 x10^3/uL (0.0-1.1) Eosinophils # (Auto) 0.0 x10^3/uL (0.0-0.7) 0.1 x10^3/uL (0.0-0.7) Basophils # (Auto) 0.0 x10^3/uL (0.0-0.2) 0.1 x10^3/uL (0.0-0.2) Sodium Level 140 mmol/L (136-145) 140 mmol/L (136-145) Potassium Level 3.6 mmol/L (3.5-5.1) 4.0 mmol/L (3.5-5.1) Chloride Level 100 mmol/L (98-107) 105 mmol/L (98-107) Carbon Dioxide Level 28 mmol/L (21-32) 27 mmol/L (21-32) Anion Gap 12 (6-14) 8 (6-14) Blood Urea Nitrogen 15 mg/dL (8-26) 8 mg/dL (8-26) Creatinine 1.1 mg/dL (0.7-1.3) 1.1 mg/dL (0.7-1.3) Estimated GFR (Cockcroft-Gault) 99.5 99.5 Glucose Level 83 mg/dL (70-99) 92 mg/dL (70-99) Calcium Level 9.5 mg/dL (8.5-10.1) 8.8 mg/dL (8.5-10.1) Nasal Screen MRSA (PCR) Negative (Negative) BUN/Creatinine Ratio 7 (6-20) Total Bilirubin 0.9 mg/dL (0.2-1.0) Aspartate Amino Transf (AST/SGOT) 22 U/L (15-37) Alanine Aminotransferase (ALT/SGPT) 37 U/L (16-63) Alkaline Phosphatase 65 U/L (46-116) Total Protein 7.0 g/dL (6.4-8.2) Albumin 3.7 g/dL (3.4-5.0) Albumin/Globulin Ratio 1.1 (1.0-1.7) Laboratory Tests Test 08/29/18 04:50 White Blood Count 5.1 x10^3/uL (4.0-11.0) Red Blood Count 4.85 x10^6/uL (4.30-5.70) Hemoglobin 14.2 g/dL (13.0-17.5) Hematocrit 42.2 % (39.0-53.0) Mean Corpuscular Volume 87 fL (79-100) Mean Corpuscular Hemoglobin 29 pg (25-35) Mean Corpuscular Hemoglobin Concent 34 g/dL (31-37) Red Cell Distribution Width 14.0 % (11.5-14.5) Platelet Count 54 x10^3/uL (140-400) Neutrophils (%) (Auto) 38 % (31-73) Lymphocytes (%) (Auto) 46 % (24-48) Monocytes (%) (Auto) 12 % (0-9) Eosinophils (%) (Auto) 3 % (0-3) Basophils (%) (Auto) 1 % (0-3) Neutrophils # (Auto) 1.9 x10^3uL (1.8-7.7) Lymphocytes # (Auto) 2.3 x10^3/uL (1.0-4.8) Monocytes # (Auto) 0.6 x10^3/uL (0.0-1.1) Eosinophils # (Auto) 0.1 x10^3/uL (0.0-0.7) Basophils # (Auto) 0.1 x10^3/uL (0.0-0.2) Sodium Level 140 mmol/L (136-145) Potassium Level 4.0 mmol/L (3.5-5.1) Chloride Level 105 mmol/L (98-107) Carbon Dioxide Level 27 mmol/L (21-32) Anion Gap 8 (6-14) Blood Urea Nitrogen 8 mg/dL (8-26) Creatinine 1.1 mg/dL (0.7-1.3) Estimated GFR (Cockcroft-Gault) 99.5 BUN/Creatinine Ratio 7 (6-20) Glucose Level 92 mg/dL (70-99) Calcium Level 8.8 mg/dL (8.5-10.1) Total Bilirubin 0.9 mg/dL (0.2-1.0) Aspartate Amino Transf (AST/SGOT) 22 U/L (15-37) Alanine Aminotransferase (ALT/SGPT) 37 U/L (16-63) Alkaline Phosphatase 65 U/L (46-116) Total Protein 7.0 g/dL (6.4-8.2) Albumin 3.7 g/dL (3.4-5.0) Albumin/Globulin Ratio 1.1 (1.0-1.7) Medications Current Medications Propofol 20 ml @ As Directed STK-MED ONCE IV ; Start 08/28/18 at 01:48; Stop 08/28/18 at 01:49; Status DC Lidocaine HCl (Lidocaine Pf 2% Vial) 5 ml STK-MED ONCE .ROUTE ; Start 08/28/18 at 01:48; Stop 08/28/18 at 01:49; Status DC Succinylcholine Chloride (Anectine) 200 mg STK-MED ONCE .ROUTE ; Start at 01:48; Stop 08/28/18 at 01:49; Status DC Propofol 20 ml @ As Directed STK-MED ONCE IV ; Start 08/28/18 at 01:48; Stop 08/28/18 at 01:49; Status DC Sodium Chloride 1,000 ml @ 100 mls/hr Q10H IV Last administered on 08/29/18at 09:12; Start 08/28/18 at 02:45 Acetaminophen (Tylenol Supp) 650 mg PRN Q6HRS PRN [place] MILD PAIN / TEMP; Start 08/28/18 at 07:30 Prochlorperazine Edisylate (Compazine) 10 mg PRN Q6HRS PRN IV HEADACHE/NAUSEA/ VOMITING Last administered on 08/28/18at 07:41; Start 08/28/18 at 07:30 Propofol (Diprivan) 200 mg STK-MED ONCE IV ; Start 08/28/18 at 01:00; Stop at 12:52; Status DC Active Scripts Active Tramadol Hcl 50 Mg Tablet 50 Mg PO Q4HRS PRN Reported Celexa (Citalopram Hydrobromide) 20 Mg Tablet 1 Tab PO DAILY Gabapentin 300 Mg Capsule 300 Mg PO BID Benadryl (Diphenhydramine Hcl) 25 Mg Capsule 1 Cap PO QHS Vitals/I & O Vital Sign - Last 24 Hours 08/28/18 08/28/18 08/28/18 08/28/18 13:00 14:00 15:00 19:20 Temp 97.7 98.3 97.7 98.3 Pulse 64 57 75 68 Resp 24 16 16 B/P (MAP) 123/66 (85) 133/73 (93) 122/77 (92) 113/64 (80) Pulse Ox 98 98 99 99 O2 Delivery Room Air Room Air Room Air Room Air 08/28/18 08/28/18 08/29/18 08/29/18 20:00 23:29 03:26 07:00 Temp 98.2 97.7 98.7 98.2 97.7 98.7 Pulse 71 73 65 Resp 18 18 18 B/P (MAP) 116/72 (87) 113/77 (89) 119/78 (92) Pulse Ox 99 99 100 O2 Delivery Room Air Room Air Room Air Room Air 08/29/18 08:30 O2 Delivery Room Air Intake and Output 08/28/18 08/28/18 08/29/18 15:00 23:00 07:00 Intake Total 0 ml 420 ml Output Total 400 ml 100 ml 400 ml Balance -400 ml -100 ml 20 ml Problem List Problems Medical Problems: (1) Foreign body Status: Acute Assessment Ingested razor blade- monitor KUB with return to facility once passed, liquids only JOSHUA RAMOS MD Aug 29, 2018 12:33
[2018-08-29 15:00] VITALS: BP 115/78
[2018-08-29 19:00] VITALS: BP 150/93
[2018-08-29 23:00] VITALS: BP_SYST 146; BP_SYST 156; BP_DIAS 84; BP_DIAS 86
[2018-08-30 03:00] VITALS: BP 139/81
--- NOTE | 2018-08-30 03:53 | EKG ---
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
[2018-08-30] MEDS: IV NORMAL SALINE 1000ML BAG 1,000 ML IV SCH (04:10)
[2018-08-30 04:54] LABS: BASO # 0.1 x10^3/uL (0.0-0.2); BASO % 1 % (0-3); EOS # 0.2 x10^3/uL (0.0-0.7); EOS % 3 % (0-3); HEMATOCRIT 42.7 % (39.0-53.0); HEMOGLOBIN 14.4 g/dL (13.0-17.5); LYMPH # 2.5 x10^3/uL (1.0-4.8); LYMPH % 47 % (24-48); MEAN CORPUSCULAR HEMOGLOBIN 29 pg (25-35); MEAN CORPUSCULAR HGB CONC 34 g/dL (31-37); MEAN CORPUSCULAR VOLUME 87 fL (79-100); MONO # 0.7 x10^3/uL (0.0-1.1); MONO % 13 % (0-9); NEUT # 1.9 x10^3uL (1.8-7.7); NEUT % 36 % (31-73); PLATELET COUNT 54 x10^3/uL (140-400); RED BLOOD COUNT 4.94 x10^6/uL (4.30-5.70); RED CELL DISTRIBUTION WIDTH 13.9 % (11.5-14.5); WHITE BLOOD COUNT 5.3 x10^3/uL (4.0-11.0)
[2018-08-30 05:16] LABS: ALBUMIN 3.7 g/dL (3.4-5.0); ALBUMIN/GLOBULIN RATIO 1.1 (1.0-1.7); CALCIUM 8.8 mg/dL (8.5-10.1); GFR 111.1; POTASSIUM 3.9 mmol/L (3.5-5.1); TOTAL BILIRUBIN 0.8 mg/dL (0.2-1.0)
[2018-08-30 07:40] VITALS: BP 124/84
--- NOTE | 2018-08-30 09:38 | RAD ---
Examination: Frontal view of the abdomen HISTORY: History of foreign body ingestion follow-up COMPARISON: 08/29/2018 FINDINGS: The bibasilar lungs are clear.The previously visualized foreign body in the left lower pelvis region is not identified. IMPRESSION: 1. No evidence of previously visualized foreign body in the left lower pelvis. Electronically signed by: Aurelio Valentine MD (08/30/2018 9:34 AM) [facility]
--- NOTE | 2018-08-30 11:08 | PDOC ---
PROGRESS NOTES History of Present Illness History of Present Illness ASSESSMENT AND PLAN: Ingestion of razor blade. The ingested foreign body/razor blade now appears to be EXPELLED FROM sigmoid colon. THROMBOCYTOPENIA careful monitoring. Surgery, FOLLOWING GI following Continue home meds, frequent labs. HEME CONSULT PROGNOSIS: Guarded. i suggested to the officers in his room, that they go in the restroom, and make sure he does not try to retrieve the razor from his stool Operative Note EGD Meds propofol per anesthesia Pre-op dx ingested foreigh body=razor blade Post-op dx non-visualized razor blade- likley down stream in sb Plan serial KUBS surgical consult for possible removal if complication occurs Vitals Vitals Vital Signs Date Time Temp Pulse Resp B/P (MAP) Pulse Ox O2 Delivery O2 Flow Rate FiO2 08/30/18 08:00 Room Air 08/30/18 07:40 97.8 97 18 124/84 (97) 100 97.8 Physical Exam General: Alert, Oriented X3, Cooperative, No acute distress Heart: Regular rate, Normal S1, Normal S2, No murmurs Lungs: Clear Abdomen: Normal bowel sounds, Soft, No tenderness, Other (ND) Extremities: No clubbing, No cyanosis Skin: No rashes, No breakdown Labs LABS Examination: Frontal view of the abdomen HISTORY: History of foreign body ingestion follow-up COMPARISON: 08/29/2018 FINDINGS: The bibasilar lungs are clear.The previously visualized foreign body in the left lower pelvis region is not identified. IMPRESSION: 1. No evidence of previously visualized foreign body in the left lower pelvis. Electronically signed by: Aurelio Valentine MD (08/30/2018 9:34 AM) [facility] Laboratory Tests Test 08/30/18 04:05 White Blood Count 5.3 x10^3/uL (4.0-11.0) Red Blood Count 4.94 x10^6/uL (4.30-5.70) Hemoglobin 14.4 g/dL (13.0-17.5) Hematocrit 42.7 % (39.0-53.0) Mean Corpuscular Volume 87 fL (79-100) Mean Corpuscular Hemoglobin 29 pg (25-35) Mean Corpuscular Hemoglobin Concent 34 g/dL (31-37) Red Cell Distribution Width 13.9 % (11.5-14.5) Platelet Count 54 x10^3/uL (140-400) Neutrophils (%) (Auto) 36 % (31-73) Lymphocytes (%) (Auto) 47 % (24-48) Monocytes (%) (Auto) 13 % (0-9) Eosinophils (%) (Auto) 3 % (0-3) Basophils (%) (Auto) 1 % (0-3) Neutrophils # (Auto) 1.9 x10^3uL (1.8-7.7) Lymphocytes # (Auto) 2.5 x10^3/uL (1.0-4.8) Monocytes # (Auto) 0.7 x10^3/uL (0.0-1.1) Eosinophils # (Auto) 0.2 x10^3/uL (0.0-0.7) Basophils # (Auto) 0.1 x10^3/uL (0.0-0.2) Sodium Level 141 mmol/L (136-145) Potassium Level 3.9 mmol/L (3.5-5.1) Chloride Level 107 mmol/L (98-107) Carbon Dioxide Level 27 mmol/L (21-32) Anion Gap 7 (6-14) Blood Urea Nitrogen 3 mg/dL (8-26) Creatinine 1.0 mg/dL (0.7-1.3) Estimated GFR (Cockcroft-Gault) 111.1 BUN/Creatinine Ratio 3 (6-20) Glucose Level 94 mg/dL (70-99) Calcium Level 8.8 mg/dL (8.5-10.1) Total Bilirubin 0.8 mg/dL (0.2-1.0) Aspartate Amino Transf (AST/SGOT) 18 U/L (15-37) Alanine Aminotransferase (ALT/SGPT) 33 U/L (16-63) Alkaline Phosphatase 68 U/L (46-116) Total Protein 7.0 g/dL (6.4-8.2) Albumin 3.7 g/dL (3.4-5.0) Albumin/Globulin Ratio 1.1 (1.0-1.7) Assessment and Plan Assessmemt and Plan Problems Medical Problems: (1) Foreign body Status: Acute Comment Review of Relevant I have reviewed the following items elier (where applicable) has been applied. Labs Laboratory Tests Test 08/29/18 04:50 12/2/18 04:05 White Blood Count 5.1 x10^3/uL (4.0-11.0) 5.3 x10^3/uL (4.0-11.0) Red Blood Count 4.85 x10^6/uL (4.30-5.70) 4.94 x10^6/uL (4.30-5.70) Hemoglobin 14.2 g/dL (13.0-17.5) 14.4 g/dL (13.0-17.5) Hematocrit 42.2 % (39.0-53.0) 42.7 % (39.0-53.0) Mean Corpuscular Volume 87 fL (79-100) 87 fL (79-100) Mean Corpuscular Hemoglobin 29 pg (25-35) 29 pg (25-35) Mean Corpuscular Hemoglobin Concent 34 g/dL (31-37) 34 g/dL (31-37) Red Cell Distribution Width 14.0 % (11.5-14.5) 13.9 % (11.5-14.5) Platelet Count 54 x10^3/uL (140-400) 54 x10^3/uL (140-400) Neutrophils (%) (Auto) 38 % (31-73) 36 % (31-73) Lymphocytes (%) (Auto) 46 % (24-48) 47 % (24-48) Monocytes (%) (Auto) 12 % (0-9) 13 % (0-9) Eosinophils (%) (Auto) 3 % (0-3) 3 % (0-3) Basophils (%) (Auto) 1 % (0-3) 1 % (0-3) Neutrophils # (Auto) 1.9 x10^3uL (1.8-7.7) 1.9 x10^3uL (1.8-7.7) Lymphocytes # (Auto) 2.3 x10^3/uL (1.0-4.8) 2.5 x10^3/uL (1.0-4.8) Monocytes # (Auto) 0.6 x10^3/uL (0.0-1.1) 0.7 x10^3/uL (0.0-1.1) Eosinophils # (Auto) 0.1 x10^3/uL (0.0-0.7) 0.2 x10^3/uL (0.0-0.7) Basophils # (Auto) 0.1 x10^3/uL (0.0-0.2) 0.1 x10^3/uL (0.0-0.2) Sodium Level 140 mmol/L (136-145) 141 mmol/L (136-145) Potassium Level 4.0 mmol/L (3.5-5.1) 3.9 mmol/L (3.5-5.1) Chloride Level 105 mmol/L (98-107) 107 mmol/L (98-107) Carbon Dioxide Level 27 mmol/L (21-32) 27 mmol/L (21-32) Anion Gap 8 (6-14) 7 (6-14) Blood Urea Nitrogen 8 mg/dL (8-26) 3 mg/dL (8-26) Creatinine 1.1 mg/dL (0.7-1.3) 1.0 mg/dL (0.7-1.3) Estimated GFR (Cockcroft-Gault) 99.5 111.1 BUN/Creatinine Ratio 7 (6-20) 3 (6-20) Glucose Level 92 mg/dL (70-99) 94 mg/dL (70-99) Calcium Level 8.8 mg/dL (8.5-10.1) 8.8 mg/dL (8.5-10.1) Total Bilirubin 0.9 mg/dL (0.2-1.0) 0.8 mg/dL (0.2-1.0) Aspartate Amino Transf (AST/SGOT) 22 U/L (15-37) 18 U/L (15-37) Alanine Aminotransferase (ALT/SGPT) 37 U/L (16-63) 33 U/L (16-63) Alkaline Phosphatase 65 U/L (46-116) 68 U/L (46-116) Total Protein 7.0 g/dL (6.4-8.2) 7.0 g/dL (6.4-8.2) Albumin 3.7 g/dL (3.4-5.0) 3.7 g/dL (3.4-5.0) Albumin/Globulin Ratio 1.1 (1.0-1.7) 1.1 (1.0-1.7) Laboratory Tests Test 08/30/18 04:05 White Blood Count 5.3 x10^3/uL (4.0-11.0) Red Blood Count 4.94 x10^6/uL (4.30-5.70) Hemoglobin 14.4 g/dL (13.0-17.5) Hematocrit 42.7 % (39.0-53.0) Mean Corpuscular Volume 87 fL (79-100) Mean Corpuscular Hemoglobin 29 pg (25-35) Mean Corpuscular Hemoglobin Concent 34 g/dL (31-37) Red Cell Distribution Width 13.9 % (11.5-14.5) Platelet Count 54 x10^3/uL (140-400) Neutrophils (%) (Auto) 36 % (31-73) Lymphocytes (%) (Auto) 47 % (24-48) Monocytes (%) (Auto) 13 % (0-9) Eosinophils (%) (Auto) 3 % (0-3) Basophils (%) (Auto) 1 % (0-3) Neutrophils # (Auto) 1.9 x10^3uL (1.8-7.7) Lymphocytes # (Auto) 2.5 x10^3/uL (1.0-4.8) Monocytes # (Auto) 0.7 x10^3/uL (0.0-1.1) Eosinophils # (Auto) 0.2 x10^3/uL (0.0-0.7) Basophils # (Auto) 0.1 x10^3/uL (0.0-0.2) Sodium Level 141 mmol/L (136-145) Potassium Level 3.9 mmol/L (3.5-5.1) Chloride Level 107 mmol/L (98-107) Carbon Dioxide Level 27 mmol/L (21-32) Anion Gap 7 (6-14) Blood Urea Nitrogen 3 mg/dL (8-26) Creatinine 1.0 mg/dL (0.7-1.3) Estimated GFR (Cockcroft-Gault) 111.1 BUN/Creatinine Ratio 3 (6-20) Glucose Level 94 mg/dL (70-99) Calcium Level 8.8 mg/dL (8.5-10.1) Total Bilirubin 0.8 mg/dL (0.2-1.0) Aspartate Amino Transf (AST/SGOT) 18 U/L (15-37) Alanine Aminotransferase (ALT/SGPT) 33 U/L (16-63) Alkaline Phosphatase 68 U/L (46-116) Total Protein 7.0 g/dL (6.4-8.2) Albumin 3.7 g/dL (3.4-5.0) Albumin/Globulin Ratio 1.1 (1.0-1.7) Medications Current Medications Propofol 20 ml @ As Directed STK-MED ONCE IV ; Start 08/28/18 at 01:48; Stop 08/28/18 at 01:49; Status DC Lidocaine HCl (Lidocaine Pf 2% Vial) 5 ml STK-MED ONCE .ROUTE ; Start 08/28/18 at 01:48; Stop 08/28/18 at 01:49; Status DC Succinylcholine Chloride (Anectine) 200 mg STK-MED ONCE .ROUTE ; Start at 01:48; Stop 08/28/18 at 01:49; Status DC Propofol 20 ml @ As Directed STK-MED ONCE IV ; Start 08/28/18 at 01:48; Stop 08/28/18 at 01:49; Status DC Sodium Chloride 1,000 ml @ 100 mls/hr Q10H IV Last administered on 08/30/18at 04:10; Start 08/28/18 at 02:45 Acetaminophen (Tylenol Supp) 650 mg PRN Q6HRS PRN [place] MILD PAIN / TEMP; Start 08/28/18 at 07:30 Prochlorperazine Edisylate (Compazine) 10 mg PRN Q6HRS PRN IV HEADACHE/NAUSEA/ VOMITING Last administered on 08/28/18at 07:41; Start 08/28/18 at 07:30 Propofol (Diprivan) 200 mg STK-MED ONCE IV ; Start 08/28/18 at 01:00; Stop at 12:52; Status DC Active Scripts Active Tramadol Hcl 50 Mg Tablet 50 Mg PO Q4HRS PRN Reported Celexa (Citalopram Hydrobromide) 20 Mg Tablet 1 Tab PO DAILY Gabapentin 300 Mg Capsule 300 Mg PO BID Benadryl (Diphenhydramine Hcl) 25 Mg Capsule 1 Cap PO QHS Vitals/I & O Vital Sign - Last 24 Hours 08/29/18 08/29/18 08/29/18 08/29/18 15:00 19:00 19:45 23:00 Temp 98.5 98.7 98.3 98.5 98.7 98.3 Pulse 70 60 49 Resp 18 18 18 B/P (MAP) 115/78 (90) 150/93 (112) 156/84 (108) Pulse Ox 100 100 99 O2 Delivery Room Air Room Air Room Air Room Air 08/30/18 08/30/18 08/30/18 03:00 07:40 08:00 Temp 98.5 97.8 98.5 97.8 Pulse 49 97 Resp 18 18 B/P (MAP) 139/81 (100) 124/84 (97) Pulse Ox 99 100 O2 Delivery Room Air Room Air Room Air KIRTI VELASQUEZ MD Aug 30, 2018 11:08
[2018-08-30 11:35] VITALS: BP 118/71
--- NOTE | 2018-08-30 13:01 | PDOC ---
G I PROGRESS NOTE Reason for Follow-up Ingested foreign body Subjective Without new complaints Physical Exam Lungs clear CV S1 S2 ABD +BS, soft, nontender Review of Relevant I have reviewed the following items elier (where applicable) has been applied. Labs Laboratory Tests Test 08/29/18 04:50 08/30/18 04:05 White Blood Count 5.1 x10^3/uL (4.0-11.0) 5.3 x10^3/uL (4.0-11.0) Red Blood Count 4.85 x10^6/uL (4.30-5.70) 4.94 x10^6/uL (4.30-5.70) Hemoglobin 14.2 g/dL (13.0-17.5) 14.4 g/dL (13.0-17.5) Hematocrit 42.2 % (39.0-53.0) 42.7 % (39.0-53.0) Mean Corpuscular Volume 87 fL (79-100) 87 fL (79-100) Mean Corpuscular Hemoglobin 29 pg (25-35) 29 pg (25-35) Mean Corpuscular Hemoglobin Concent 34 g/dL (31-37) 34 g/dL (31-37) Red Cell Distribution Width 14.0 % (11.5-14.5) 13.9 % (11.5-14.5) Platelet Count 54 x10^3/uL (140-400) 54 x10^3/uL (140-400) Neutrophils (%) (Auto) 38 % (31-73) 36 % (31-73) Lymphocytes (%) (Auto) 46 % (24-48) 47 % (24-48) Monocytes (%) (Auto) 12 % (0-9) 13 % (0-9) Eosinophils (%) (Auto) 3 % (0-3) 3 % (0-3) Basophils (%) (Auto) 1 % (0-3) 1 % (0-3) Neutrophils # (Auto) 1.9 x10^3uL (1.8-7.7) 1.9 x10^3uL (1.8-7.7) Lymphocytes # (Auto) 2.3 x10^3/uL (1.0-4.8) 2.5 x10^3/uL (1.0-4.8) Monocytes # (Auto) 0.6 x10^3/uL (0.0-1.1) 0.7 x10^3/uL (0.0-1.1) Eosinophils # (Auto) 0.1 x10^3/uL (0.0-0.7) 0.2 x10^3/uL (0.0-0.7) Basophils # (Auto) 0.1 x10^3/uL (0.0-0.2) 0.1 x10^3/uL (0.0-0.2) Sodium Level 140 mmol/L (136-145) 141 mmol/L (136-145) Potassium Level 4.0 mmol/L (3.5-5.1) 3.9 mmol/L (3.5-5.1) Chloride Level 105 mmol/L (98-107) 107 mmol/L (98-107) Carbon Dioxide Level 27 mmol/L (21-32) 27 mmol/L (21-32) Anion Gap 8 (6-14) 7 (6-14) Blood Urea Nitrogen 8 mg/dL (8-26) 3 mg/dL (8-26) Creatinine 1.1 mg/dL (0.7-1.3) 1.0 mg/dL (0.7-1.3) Estimated GFR (Cockcroft-Gault) 99.5 111.1 BUN/Creatinine Ratio 7 (6-20) 3 (6-20) Glucose Level 92 mg/dL (70-99) 94 mg/dL (70-99) Calcium Level 8.8 mg/dL (8.5-10.1) 8.8 mg/dL (8.5-10.1) Total Bilirubin 0.9 mg/dL (0.2-1.0) 0.8 mg/dL (0.2-1.0) Aspartate Amino Transf (AST/SGOT) 22 U/L (15-37) 18 U/L (15-37) Alanine Aminotransferase (ALT/SGPT) 37 U/L (16-63) 33 U/L (16-63) Alkaline Phosphatase 65 U/L (46-116) 68 U/L (46-116) Total Protein 7.0 g/dL (6.4-8.2) 7.0 g/dL (6.4-8.2) Albumin 3.7 g/dL (3.4-5.0) 3.7 g/dL (3.4-5.0) Albumin/Globulin Ratio 1.1 (1.0-1.7) 1.1 (1.0-1.7) Laboratory Tests Test 08/30/18 04:05 White Blood Count 5.3 x10^3/uL (4.0-11.0) Red Blood Count 4.94 x10^6/uL (4.30-5.70) Hemoglobin 14.4 g/dL (13.0-17.5) Hematocrit 42.7 % (39.0-53.0) Mean Corpuscular Volume 87 fL (79-100) Mean Corpuscular Hemoglobin 29 pg (25-35) Mean Corpuscular Hemoglobin Concent 34 g/dL (31-37) Red Cell Distribution Width 13.9 % (11.5-14.5) Platelet Count 54 x10^3/uL (140-400) Neutrophils (%) (Auto) 36 % (31-73) Lymphocytes (%) (Auto) 47 % (24-48) Monocytes (%) (Auto) 13 % (0-9) Eosinophils (%) (Auto) 3 % (0-3) Basophils (%) (Auto) 1 % (0-3) Neutrophils # (Auto) 1.9 x10^3uL (1.8-7.7) Lymphocytes # (Auto) 2.5 x10^3/uL (1.0-4.8) Monocytes # (Auto) 0.7 x10^3/uL (0.0-1.1) Eosinophils # (Auto) 0.2 x10^3/uL (0.0-0.7) Basophils # (Auto) 0.1 x10^3/uL (0.0-0.2) Sodium Level 141 mmol/L (136-145) Potassium Level 3.9 mmol/L (3.5-5.1) Chloride Level 107 mmol/L (98-107) Carbon Dioxide Level 27 mmol/L (21-32) Anion Gap 7 (6-14) Blood Urea Nitrogen 3 mg/dL (8-26) Creatinine 1.0 mg/dL (0.7-1.3) Estimated GFR (Cockcroft-Gault) 111.1 BUN/Creatinine Ratio 3 (6-20) Glucose Level 94 mg/dL (70-99) Calcium Level 8.8 mg/dL (8.5-10.1) Total Bilirubin 0.8 mg/dL (0.2-1.0) Aspartate Amino Transf (AST/SGOT) 18 U/L (15-37) Alanine Aminotransferase (ALT/SGPT) 33 U/L (16-63) Alkaline Phosphatase 68 U/L (46-116) Total Protein 7.0 g/dL (6.4-8.2) Albumin 3.7 g/dL (3.4-5.0) Albumin/Globulin Ratio 1.1 (1.0-1.7) Medications Current Medications Propofol 20 ml @ As Directed STK-MED ONCE IV ; Start 08/28/18 at 01:48; Stop 08/28/18 at 01:49; Status DC Lidocaine HCl (Lidocaine Pf 2% Vial) 5 ml STK-MED ONCE .ROUTE ; Start 08/28/18 at 01:48; Stop 08/28/18 at 01:49; Status DC Succinylcholine Chloride (Anectine) 200 mg STK-MED ONCE .ROUTE ; Start at 01:48; Stop 08/28/18 at 01:49; Status DC Propofol 20 ml @ As Directed STK-MED ONCE IV ; Start 08/28/18 at 01:48; Stop 08/28/18 at 01:49; Status DC Sodium Chloride 1,000 ml @ 100 mls/hr Q10H IV Last administered on 08/30/18at 04:10; Start 08/28/18 at 02:45 Acetaminophen (Tylenol Supp) 650 mg PRN Q6HRS PRN [place] MILD PAIN / TEMP; Start 08/28/18 at 07:30 Prochlorperazine Edisylate (Compazine) 10 mg PRN Q6HRS PRN IV HEADACHE/NAUSEA/ VOMITING Last administered on 08/28/18at 07:41; Start 08/28/18 at 07:30 Propofol (Diprivan) 200 mg STK-MED ONCE IV ; Start 08/28/18 at 01:00; Stop at 12:52; Status DC Active Scripts Active Tramadol Hcl 50 Mg Tablet 50 Mg PO Q4HRS PRN Reported Celexa (Citalopram Hydrobromide) 20 Mg Tablet 1 Tab PO DAILY Gabapentin 300 Mg Capsule 300 Mg PO BID Benadryl (Diphenhydramine Hcl) 25 Mg Capsule 1 Cap PO QHS Vitals/I & O Vital Sign - Last 24 Hours 08/29/18 08/29/18 08/29/18 08/29/18 15:00 19:00 19:45 23:00 Temp 98.5 98.7 98.3 98.5 98.7 98.3 Pulse 70 60 49 Resp B/P (MAP) 115/78 (90) 150/93 (112) 156/84 (108) Pulse Ox 100 100 99 O2 Delivery Room Air Room Air Room Air Room Air 08/30/18 08/30/18 08/30/18 08/30/18 03:00 07:40 08:00 11:35 Temp 98.5 97.8 98.2 98.5 97.8 98.2 Pulse 49 97 86 Resp B/P (MAP) 139/81 (100) 124/84 (97) 118/71 (87) Pulse Ox 99 100 99 O2 Delivery Room Air Room Air Room Air Room Air Problem List Problems Medical Problems: (1) Foreign body Status: Acute Assessment Ingested foreign body- s/p spontaneous passage, stable for return to facility, o /p JOSHUA Lorenzo MD Aug 30, 2018 13:01
--- NOTE | 2018-08-30 13:04 | PDOC3 ---
Discharge Summary Date of Admission: Aug 28, 2018 Date of Discharge: Aug 30, 2018 Follow-Up: 3-5 days Admitting Diagnosis comment: History of Present Illness History of Present Illness DISCHARGE DX Ingestion of razor blade. The ingested foreign body/razor blade now appears to be EXPELLED FROM sigmoid colon. THROMBOCYTOPENIA careful monitoring. Surgery, FOLLOWING GI following Continue home meds, STOP GABAPENTIN frequent labs. HEME CONSULT OUTPT PROGNOSIS: Guarded. D/W DR FREITAS, WILL D/C F/U OUTPT, GABAPENTIN MAY CAUSE TTP Operative Note EGD Meds propofol per anesthesia Pre-op dx ingested foreigh body=razor blade Post-op dx non-visualized razor blade- likley down stream in sb Plan serial KUBS surgical consult for possible removal if complication occurs Vitals Vitals Vital Signs Date Time Temp Pulse Resp B/P (MAP) Pulse Ox O2 Delivery O2 Flow Rate FiO2 08/30/18 08:00 Room Air 08/30/18 07:40 97.8 97 18 124/84 (97) 100 97.8 Physical Exam General: Alert, Oriented X3, Cooperative, No acute distress Heart: Regular rate, Normal S1, Normal S2, No murmurs Lungs: Clear Abdomen: Normal bowel sounds, Soft, No tenderness, Other (ND) Extremities: No clubbing, No cyanosis Skin: No rashes, No breakdown Labs LABS Examination: Frontal view of the abdomen HISTORY: History of foreign body ingestion follow-up COMPARISON: 08/29/2018 FINDINGS: The bibasilar lungs are clear.The previously visualized foreign body in the left lower pelvis region is not identified. IMPRESSION: 1. No evidence of previously visualized foreign body in the left lower pelvis. FINAL DIAGNOSIS Problems Medical Problems: (1) Foreign body Status: Acute Brief Hospital Course Mr. Zambrano is a 23 old [sex] who presented with [ RAZOR INGESTION, THROMBOCYTOPENIA] CONDITION AT DISCHARGE: Improved Discharge Medications Current Medications Propofol 20 ml @ As Directed STK-MED ONCE IV ; Start 08/28/18 at 01:48; Stop 08/28/18 at 01:49; Status DC Lidocaine HCl (Lidocaine Pf 2% Vial) 5 ml STK-MED ONCE .ROUTE ; Start 08/28/18 at 01:48; Stop 08/28/18 at 01:49; Status DC Succinylcholine Chloride (Anectine) 200 mg STK-MED ONCE .ROUTE ; Start at 01:48; Stop 08/28/18 at 01:49; Status DC Propofol 20 ml @ As Directed STK-MED ONCE IV ; Start 08/28/18 at 01:48; Stop 08/28/18 at 01:49; Status DC Sodium Chloride 1,000 ml @ 100 mls/hr Q10H IV Last administered on 08/30/18at 04:10; Start 08/28/18 at 02:45 Acetaminophen (Tylenol Supp) 650 mg PRN Q6HRS PRN [place] MILD PAIN / TEMP; Start 08/28/18 at 07:30 Prochlorperazine Edisylate (Compazine) 10 mg PRN Q6HRS PRN IV HEADACHE/NAUSEA/ VOMITING Last administered on 08/28/18at 07:41; Start 08/28/18 at 07:30 Propofol (Diprivan) 200 mg STK-MED ONCE IV ; Start 08/28/18 at 01:00; Stop at 12:52; Status DC Active Scripts Active Tramadol Hcl 50 Mg Tablet 50 Mg PO Q4HRS PRN Reported Celexa (Citalopram Hydrobromide) 20 Mg Tablet 1 Tab PO DAILY Gabapentin 300 Mg Capsule 300 Mg PO BID Benadryl (Diphenhydramine Hcl) 25 Mg Capsule 1 Cap PO QHS Vital Signs Vital Signs Date Time Temp Pulse Resp B/P (MAP) Pulse Ox O2 Delivery O2 Flow Rate FiO2 08/30/18 11:35 98.2 86 18 118/71 (87) 99 Room Air 98.2 Labs Laboratory Tests Test 08/29/18 04:50 08/30/18 04:05 White Blood Count 5.1 x10^3/uL (4.0-11.0) 5.3 x10^3/uL (4.0-11.0) Red Blood Count 4.85 x10^6/uL (4.30-5.70) 4.94 x10^6/uL (4.30-5.70) Hemoglobin 14.2 g/dL (13.0-17.5) 14.4 g/dL (13.0-17.5) Hematocrit 42.2 % (39.0-53.0) 42.7 % (39.0-53.0) Mean Corpuscular Volume 87 fL (79-100) 87 fL (79-100) Mean Corpuscular Hemoglobin 29 pg (25-35) 29 pg (25-35) Mean Corpuscular Hemoglobin Concent 34 g/dL (31-37) 34 g/dL (31-37) Red Cell Distribution Width 14.0 % (11.5-14.5) 13.9 % (11.5-14.5) Platelet Count 54 x10^3/uL (140-400) 54 x10^3/uL (140-400) Neutrophils (%) (Auto) 38 % (31-73) 36 % (31-73) Lymphocytes (%) (Auto) 46 % (24-48) 47 % (24-48) Monocytes (%) (Auto) 12 % (0-9) 13 % (0-9) Eosinophils (%) (Auto) 3 % (0-3) 3 % (0-3) Basophils (%) (Auto) 1 % (0-3) 1 % (0-3) Neutrophils # (Auto) 1.9 x10^3uL (1.8-7.7) 1.9 x10^3uL (1.8-7.7) Lymphocytes # (Auto) 2.3 x10^3/uL (1.0-4.8) 2.5 x10^3/uL (1.0-4.8) Monocytes # (Auto) 0.6 x10^3/uL (0.0-1.1) 0.7 x10^3/uL (0.0-1.1) Eosinophils # (Auto) 0.1 x10^3/uL (0.0-0.7) 0.2 x10^3/uL (0.0-0.7) Basophils # (Auto) 0.1 x10^3/uL (0.0-0.2) 0.1 x10^3/uL (0.0-0.2) Sodium Level 140 mmol/L (136-145) 141 mmol/L (136-145) Potassium Level 4.0 mmol/L (3.5-5.1) 3.9 mmol/L (3.5-5.1) Chloride Level 105 mmol/L (98-107) 107 mmol/L (98-107) Carbon Dioxide Level 27 mmol/L (21-32) 27 mmol/L (21-32) Anion Gap 8 (6-14) 7 (6-14) Blood Urea Nitrogen 8 mg/dL (8-26) 3 mg/dL (8-26) Creatinine 1.1 mg/dL (0.7-1.3) 1.0 mg/dL (0.7-1.3) Estimated GFR (Cockcroft-Gault) 99.5 111.1 BUN/Creatinine Ratio 7 (6-20) 3 (6-20) Glucose Level 92 mg/dL (70-99) 94 mg/dL (70-99) Calcium Level 8.8 mg/dL (8.5-10.1) 8.8 mg/dL (8.5-10.1) Total Bilirubin 0.9 mg/dL (0.2-1.0) 0.8 mg/dL (0.2-1.0) Aspartate Amino Transf (AST/SGOT) 22 U/L (15-37) 18 U/L (15-37) Alanine Aminotransferase (ALT/SGPT) 37 U/L (16-63) 33 U/L (16-63) Alkaline Phosphatase 65 U/L (46-116) 68 U/L (46-116) Total Protein 7.0 g/dL (6.4-8.2) 7.0 g/dL (6.4-8.2) Albumin 3.7 g/dL (3.4-5.0) 3.7 g/dL (3.4-5.0) Albumin/Globulin Ratio 1.1 (1.0-1.7) 1.1 (1.0-1.7) Laboratory Tests Test 08/30/18 04:05 White Blood Count 5.3 x10^3/uL (4.0-11.0) Red Blood Count 4.94 x10^6/uL (4.30-5.70) Hemoglobin 14.4 g/dL (13.0-17.5) Hematocrit 42.7 % (39.0-53.0) Mean Corpuscular Volume 87 fL (79-100) Mean Corpuscular Hemoglobin 29 pg (25-35) Mean Corpuscular Hemoglobin Concent 34 g/dL (31-37) Red Cell Distribution Width 13.9 % (11.5-14.5) Platelet Count 54 x10^3/uL (140-400) Neutrophils (%) (Auto) 36 % (31-73) Lymphocytes (%) (Auto) 47 % (24-48) Monocytes (%) (Auto) 13 % (0-9) Eosinophils (%) (Auto) 3 % (0-3) Basophils (%) (Auto) 1 % (0-3) Neutrophils # (Auto) 1.9 x10^3uL (1.8-7.7) Lymphocytes # (Auto) 2.5 x10^3/uL (1.0-4.8) Monocytes # (Auto) 0.7 x10^3/uL (0.0-1.1) Eosinophils # (Auto) 0.2 x10^3/uL (0.0-0.7) Basophils # (Auto) 0.1 x10^3/uL (0.0-0.2) Sodium Level 141 mmol/L (136-145) Potassium Level 3.9 mmol/L (3.5-5.1) Chloride Level 107 mmol/L (98-107) Carbon Dioxide Level 27 mmol/L (21-32) Anion Gap 7 (6-14) Blood Urea Nitrogen 3 mg/dL (8-26) Creatinine 1.0 mg/dL (0.7-1.3) Estimated GFR (Cockcroft-Gault) 111.1 BUN/Creatinine Ratio 3 (6-20) Glucose Level 94 mg/dL (70-99) Calcium Level 8.8 mg/dL (8.5-10.1) Total Bilirubin 0.8 mg/dL (0.2-1.0) Aspartate Amino Transf (AST/SGOT) 18 U/L (15-37) Alanine Aminotransferase (ALT/SGPT) 33 U/L (16-63) Alkaline Phosphatase 68 U/L (46-116) Total Protein 7.0 g/dL (6.4-8.2) Albumin 3.7 g/dL (3.4-5.0) Albumin/Globulin Ratio 1.1 (1.0-1.7) Allergies Allergies Coded Allergies Type Severity Reaction Last Updated Verified aspirin Allergy Unknown 04/24/18 Yes Disposition/Orders: Other (BACK TO [facility]) Patient Instructions D/C PLANNING 32 MIN KIRTI VELASQUEZ MD Aug 30, 2018 13:04
--- NOTE | 2018-08-30 13:11 | DISCH ---
DISCHARGE INSTRUCTIONS Condition on Discharge Condition on Discharge: Stable Activity After Discharge Activity Instructions for Disc: Resume previous activity Lifting Instructions after Dis: No heavy lifting, No pulling or pushing Exercise Instruction after Dis: Walk 10 min, 3 x per day Weight Bearing Status after Di: As tolerated Diet after Discharge Diet after Discharge: Regular Wound Incision Care Wound/Incision Care: Ice to area for comfort, Change dressing Checks after Discharge Checks after discharge: Check blood press - daily Contacting the DR. after DC Call your doctor for: If your condition worsens KIRTI VELASQUEZ MD Aug 30, 2018 13:11
--- NOTE | 2018-08-30 13:12 | PDOC ---
SURGICAL PROGRESS NOTE Subjective in the restroom xrays show FB has passed d/w IPC--low plts-hem consult no surgical needs available if needed Vital Signs Vital Signs Date Time Temp Pulse Resp B/P (MAP) Pulse Ox O2 Delivery O2 Flow Rate FiO2 08/30/18 11:35 98.2 86 18 118/71 (87) 99 Room Air 98.2 I&O Intake and Output 08/30/18 07:00 # Voids 4 Labs Laboratory Tests Test 08/29/18 04:50 08/30/18 04:05 White Blood Count 5.1 x10^3/uL (4.0-11.0) 5.3 x10^3/uL (4.0-11.0) Red Blood Count 4.85 x10^6/uL (4.30-5.70) 4.94 x10^6/uL (4.30-5.70) Hemoglobin 14.2 g/dL (13.0-17.5) 14.4 g/dL (13.0-17.5) Hematocrit 42.2 % (39.0-53.0) 42.7 % (39.0-53.0) Mean Corpuscular Volume 87 fL (79-100) 87 fL (79-100) Mean Corpuscular Hemoglobin 29 pg (25-35) 29 pg (25-35) Mean Corpuscular Hemoglobin Concent 34 g/dL (31-37) 34 g/dL (31-37) Red Cell Distribution Width 14.0 % (11.5-14.5) 13.9 % (11.5-14.5) Platelet Count 54 x10^3/uL (140-400) 54 x10^3/uL (140-400) Neutrophils (%) (Auto) 38 % (31-73) 36 % (31-73) Lymphocytes (%) (Auto) 46 % (24-48) 47 % (24-48) Monocytes (%) (Auto) 12 % (0-9) 13 % (0-9) Eosinophils (%) (Auto) 3 % (0-3) 3 % (0-3) Basophils (%) (Auto) 1 % (0-3) 1 % (0-3) Neutrophils # (Auto) 1.9 x10^3uL (1.8-7.7) 1.9 x10^3uL (1.8-7.7) Lymphocytes # (Auto) 2.3 x10^3/uL (1.0-4.8) 2.5 x10^3/uL (1.0-4.8) Monocytes # (Auto) 0.6 x10^3/uL (0.0-1.1) 0.7 x10^3/uL (0.0-1.1) Eosinophils # (Auto) 0.1 x10^3/uL (0.0-0.7) 0.2 x10^3/uL (0.0-0.7) Basophils # (Auto) 0.1 x10^3/uL (0.0-0.2) 0.1 x10^3/uL (0.0-0.2) Sodium Level 140 mmol/L (136-145) 141 mmol/L (136-145) Potassium Level 4.0 mmol/L (3.5-5.1) 3.9 mmol/L (3.5-5.1) Chloride Level 105 mmol/L (98-107) 107 mmol/L (98-107) Carbon Dioxide Level 27 mmol/L (21-32) 27 mmol/L (21-32) Anion Gap 8 (6-14) 7 (6-14) Blood Urea Nitrogen 8 mg/dL (8-26) 3 mg/dL (8-26) Creatinine 1.1 mg/dL (0.7-1.3) 1.0 mg/dL (0.7-1.3) Estimated GFR (Cockcroft-Gault) 99.5 111.1 BUN/Creatinine Ratio 7 (6-20) 3 (6-20) Glucose Level 92 mg/dL (70-99) 94 mg/dL (70-99) Calcium Level 8.8 mg/dL (8.5-10.1) 8.8 mg/dL (8.5-10.1) Total Bilirubin 0.9 mg/dL (0.2-1.0) 0.8 mg/dL (0.2-1.0) Aspartate Amino Transf (AST/SGOT) 22 U/L (15-37) 18 U/L (15-37) Alanine Aminotransferase (ALT/SGPT) 37 U/L (16-63) 33 U/L (16-63) Alkaline Phosphatase 65 U/L (46-116) 68 U/L (46-116) Total Protein 7.0 g/dL (6.4-8.2) 7.0 g/dL (6.4-8.2) Albumin 3.7 g/dL (3.4-5.0) 3.7 g/dL (3.4-5.0) Albumin/Globulin Ratio 1.1 (1.0-1.7) 1.1 (1.0-1.7) Laboratory Tests Test 08/30/18 04:05 White Blood Count 5.3 x10^3/uL (4.0-11.0) Red Blood Count 4.94 x10^6/uL (4.30-5.70) Hemoglobin 14.4 g/dL (13.0-17.5) Hematocrit 42.7 % (39.0-53.0) Mean Corpuscular Volume 87 fL (79-100) Mean Corpuscular Hemoglobin 29 pg (25-35) Mean Corpuscular Hemoglobin Concent 34 g/dL (31-37) Red Cell Distribution Width 13.9 % (11.5-14.5) Platelet Count 54 x10^3/uL (140-400) Neutrophils (%) (Auto) 36 % (31-73) Lymphocytes (%) (Auto) 47 % (24-48) Monocytes (%) (Auto) 13 % (0-9) Eosinophils (%) (Auto) 3 % (0-3) Basophils (%) (Auto) 1 % (0-3) Neutrophils # (Auto) 1.9 x10^3uL (1.8-7.7) Lymphocytes # (Auto) 2.5 x10^3/uL (1.0-4.8) Monocytes # (Auto) 0.7 x10^3/uL (0.0-1.1) Eosinophils # (Auto) 0.2 x10^3/uL (0.0-0.7) Basophils # (Auto) 0.1 x10^3/uL (0.0-0.2) Sodium Level 141 mmol/L (136-145) Potassium Level 3.9 mmol/L (3.5-5.1) Chloride Level 107 mmol/L (98-107) Carbon Dioxide Level 27 mmol/L (21-32) Anion Gap 7 (6-14) Blood Urea Nitrogen 3 mg/dL (8-26) Creatinine 1.0 mg/dL (0.7-1.3) Estimated GFR (Cockcroft-Gault) 111.1 BUN/Creatinine Ratio 3 (6-20) Glucose Level 94 mg/dL (70-99) Calcium Level 8.8 mg/dL (8.5-10.1) Total Bilirubin 0.8 mg/dL (0.2-1.0) Aspartate Amino Transf (AST/SGOT) 18 U/L (15-37) Alanine Aminotransferase (ALT/SGPT) 33 U/L (16-63) Alkaline Phosphatase 68 U/L (46-116) Total Protein 7.0 g/dL (6.4-8.2) Albumin 3.7 g/dL (3.4-5.0) Albumin/Globulin Ratio 1.1 (1.0-1.7) Problem List Problems Medical Problems: (1) Foreign body Status: Acute NICKEL,RICKI Ch [employer] Aug 30, 2018 13:12
== END 2018-08-30 15:45 | disposition home or self-care (01) | DRG 395 ==
LOC: EEVIPCON 00:43 → ER 00:43 → 1 WEST ICU 00:44 → 4 NORTH 14:55
PROVIDERS: ADMIT Internal Medicine; ATTEND Internal Medicine
PROC: 0DJ08ZZ Inspection of Upper Intestinal Tract, Via Natural or Artificial Opening Endoscopic (ICD-10-PCS; 2018-08-28)
PROC: 0DC68ZZ Extirpation of Matter from Stomach, Via Natural or Artificial Opening Endoscopic (ICD-10-PCS; principal; 2018-08-28 02:07)
DX: T18.198A Other foreign object in esophagus causing other injury, initial encounter (principal); D69.6 Thrombocytopenia, unspecified; I10 Essential (primary) hypertension; F32.9 Major depressive disorder, single episode, unspecified; F41.9 Anxiety disorder, unspecified; G89.29 Other chronic pain; X58.XXXA Exposure to other specified factors, initial encounter; Y93.89 Activity, other specified; Y92.89 Other specified places as the place of occurrence of the external cause; Y99.8 Other external cause status; Z79.899 Other long term (current) drug therapy; Z82.49 Family history of ischemic heart disease and other diseases of the circulatory system; Z88.8 Allergy status to other drugs, medicaments and biological substances
CPT/HCPCS: 36415; 43235; 74018; 74021; 80048; 80053; 85025; 85045; 87641; 93005; A7015; J0330; J0780; J2001; J2704; J7030; 99285-25

== ENCOUNTER 2018-12-26 20:52 | Emergency (ER) | payer OTHER ==
[~2018-12-26] VITALS: Ht 188 cm; Wt 72.6 kg
[~2018-12-26 20:52] MED LIST changes: +CITA20TA9 PO
[2018-12-26] MEDS ORDERED: LIDOCAINE 1% Multi-Dose 20 ML VIAL. ID ONE (21:30)
[2018-12-26] MEDS ORDERED: ACETAMINOPHEN 500 MG TABLET PO ONE (21:30)
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
[2018-12-26 22:50] VITALS: BP 126/62
--- NOTE | 2018-12-26 23:16 | RAD ---
Three-view right elbow dated 12/26/2018. No comparison available. Clinical data indication: Pain after injury. FINDINGS: 3 views right elbow show normal bony alignment. No displaced fracture. No acute osseous or articular abnormality. No apparent joint effusion or loose body. IMPRESSION: No acute findings. Electronically signed by: Miller Rivera MD (12/26/2018 11:13 PM) [facility]
== END 2018-12-26 22:58 | disposition home or self-care (01) ==
LOC: ER 20:52 → EEVIPCON 20:52 → ER 22:58
DX: S01.81XA Laceration without foreign body of other part of head, initial encounter (principal); S51.011A Laceration without foreign body of right elbow, initial encounter; Z88.6 Allergy status to analgesic agent; Y08.89XA Assault by other specified means, initial encounter; Y93.89 Activity, other specified; Y92.89 Other specified places as the place of occurrence of the external cause; Y99.8 Other external cause status
CPT/HCPCS: 12001; 73080; 99283